=== PATIENT | female | born 2000 | race Two or more races ===

== ENCOUNTER 2021-11-22 15:10 | Emergency (ER) | payer MEDICAID, OTHER ==
[~2021-11-22] VITALS: Ht 167.6 cm; Wt 50.0 kg
[2021-11-22 17:03] VITALS: BP 126/90
[2021-11-22] MEDS ORDERED: IBUPROFEN 600 MG TAB PO ONE (18:00)
[2021-11-22] MEDS ORDERED: IBUP600T27 PO (18:07)
== END 2021-11-22 18:11 | disposition home or self-care (01) ==
LOC: ER 15:10
DX: S16.1XXA Strain of muscle, fascia and tendon at neck level, initial encounter (principal); Z91.010 Allergy to peanuts; V43.52XA Car driver injured in collision with other type car in traffic accident, initial encounter; Y93.89 Activity, other specified; Y92.410 Unspecified street and highway as the place of occurrence of the external cause; Y99.8 Other external cause status
CPT/HCPCS: 72040

== ENCOUNTER 2022-07-29 07:39 | Emergency (ER) | payer MEDICAID, OTHER ==
[~2022-07-29] VITALS: Ht 167.6 cm; Wt 54.2 kg
[~2022-07-29 07:39] MED LIST: IBUP-1454 PO
[2022-07-29 08:10] VITALS: BP 121/77
[2022-07-29] MEDS ORDERED: ACETAMINOPHEN 500 MG TAB PO ONE (08:30)
[2022-07-29] MEDS ORDERED: DEXT60TA4 PO (09:43)
[2022-07-29] MEDS ORDERED: AZIT-43 PO (09:43)
[2022-07-29] MEDS ORDERED: LORA-622 PO (09:43)
== END 2022-07-29 09:52 | disposition home or self-care (01) ==
LOC: ER 07:39
DX: J06.9 Acute upper respiratory infection, unspecified (principal); Z20.822 Contact with and (suspected) exposure to COVID-19; Z91.010 Allergy to peanuts
CPT/HCPCS: 36415; 71046; 87426; 87804

== ENCOUNTER 2024-01-18 08:22 | Emergency (ER) | payer MEDICAID ==
[~2024-01-18] VITALS: Ht 167.6 cm; Wt 63.1 kg
[~2024-01-18 08:22] MED LIST changes: +AZIT-43 PO; +DEXT60TA4 PO
[2024-01-18] MEDS ORDERED: HYDR25SU21 PR (09:33)
--- NOTE | 2024-01-18 09:35 | ED.PDOC ---
History of Present Illness HPI Comments 23 y/o M presents with c/o rectal bleeding and blood-streaked stools for 1 month. Patient endorses on having symptoms intermittently for the past month, with no some mild constipation, that he informs on laxative use to minimal relief. Patient states on having no Hx of hemorrhoids in the past and describes blood as bright red blood. Patient denies having any nausea, vomiting, abdominal pain, or other associated symptoms or modifiers at this time. Chief Complaint: Rectal Pain Time Seen by MD: 09:20 Primary Care Provider: UNKNOWN Reviewed Notes: Nurses Notes, Medications, Allergies Allergies: Uncoded Allergies: PEANUTS (Allergy, 05/16/13) Home Meds Active Scripts Hydrocortisone Acetate (Anusol-Hc) 25 Mg Sup, 1 SUPP RI BID, #14 SUPP Prov:BECKIE SINGH MD 01/18/24 Dextromethorphan-Guaifenesin (Mucinex Dm Maximum Streng) 1 Tab Tab, 1 TAB PO BID PRN for 5 Days, #10 TAB Prov:RAFA MOORE NP 07/29/22 Azithromycin (Azithromycin) 250 Mg Tab, 250 MG PO DAILY MDD 500 for 5 Days, #6 TAB 0 Refills 2 TABLETS ORALLY ON DAY ONE, THEN 1 TABLET ORALLY DAILY FOR 4 DAYS Prov:RAFA MOORE NP 07/29/22 Ibuprofen (Ibuprofen) 600 Mg Tab, 1 TAB PO TID, #30 TAB Prov:ISELA CORTEZ 11/22/21 Information Source: Patient Mode of Arrival: Ambulatory Severity: Moderate Timing: Hours Duration: Since onset Prehospital treatment: None Past Medical History PAST MEDICAL HISTORY: Seizures Family History Family History: No family hx of HTN, No family hx ofKidney oscar, No family hx of Liver oscar, No family hx of Lung oscar, No family hx of Stroke, Family hx of DM, Family hx of Cancer, Family hx of heart oscar Social History Smoker: Cigarettes Alcohol: Denies ETOH Use Drugs: Marijuana Lives In: Home Constitutional: denies: chills, diaphoresis, fatigue, fever, malaise, sweats, weakness, others EENTM: denies: blurred vision, double vision, ear bleeding, ear discharge, ear drainage, ear pain, ear ringing, eye pain, eye redness, hearing loss, mouth pain, mouth swelling, nasal discharge, nose bleeding, nose congestion, nose pain, photophobia, tearing, throat pain, throat swelling, voice changes, others Respiratory: denies: cough, hemoptysis, orthopnea, SOB at rest, shortness of breath, SOB with excertion, stridor, wheezing, others Cardiovascular: denies: chest pain, dizzy spells, diaphoresis, Dyspnea on exertion, edema, irregular heart beat, left arm pain, lightheadedness, palpitations, PND, syncope, others Gastrointestinal: reports: blood streaked bowels, rectal bleeding; denies: abdomen distended, abdominal pain, constipated, diarrhea, dysphagia, difficulty swallowing, hematemesis, melena, nausea, poor appetite, poor fluid intake, rectal pain, vomiting, others Genitourinary: denies: burning, dysuria, flank pain, frequency, hematuria, incontinence, penile discharge, penile sore, pain, testicle pain, testicle swelling, urgency, others Neurological: denies: dizziness, fainting, headache, left sided numbness, left sided weakness, numbness, paresthesia, pre-existing deficit, right sided numbness, right sided weakness, seizure, speech problems, tingling, tremors, weakness, others Musculoskeletal: denies: back pain, gout, joint pain, joint swelling, muscle pain, muscle stiffness, neck pain, others Integumetry: denies: bruises, change in color, change in hair/nails, dryness, laceration, lesions, lumps, rash, wounds, others Allergic/Immunocompromised: denies: Difficulty Healing, Frequent Infections, Hives, Itching, others Hematologic/Lymphatic: denies: anemia, blood clots, easy bleeding, easy bruising, swollen glands, others Endocrine: denies: excessive hunger, excessive sweating, excessive thirst, excessive urination, flushing, intolerance to cold, intolerance to heat, unexplained weight gain, unexplained weight loss, others Psychiatric: denies: anxiety, bipolar disorder, depression, hopeless, panic dis order, schizophrenia, sleepless, suicidal, others All Other Systems: Reviewed and Negative Physical Exam General Appearance: No Apparent Distress HEENT: Normal ENT Inspection, Pharynx Normal, TMs Normal Neck: Full Range of Motion, Non-Tender, Normal, Normal Inspection Respiratory: Chest Non-Tender, Lungs Clear, No Accessory Muscle Use, No Respiratory Distress, Normal Breath Sounds Cardiovascular: No Edema, No JVD, No Murmur, No Gallop, Normal Peripheral Pulses, Regular Rate/Rhythm Breast Exam: Deferred Gastrointestinal: No Organomegaly, Non Tender, No Pulsatile Mass, Normal Bowel Sounds, Soft Genitalia: Deferred Pelvic: Deferred Rectal: Heme positive stool, Hemorrhoids Extremities: No calf tenderness, Normal capillary refill, Normal inspection, Normal range of motion, Non-tender, No pedal edema Musculoskeletal : Apperance: Normal Neurologic: Alert, 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 Was a procedure done?: No Differential Dx Considerations may include: hemorrhoids, diverticulitis, GI hemorrhage, X-Ray, Labs, Meds, VS Vital Signs Date Time Temp Pulse Resp B/P (MAP) Pulse Ox O2 Delivery O2 Flow Rate FiO2 01/18/24 09:49 98.9 74 16 137/86 (103) 99 98.9 01/18/24 08:42 98.1 73 16 13/89 (64) 100 The patient was being started on Anusol The patient was diagnosis is internal hemorrhoids Images Reviewed?: Images reviewed and evaluated by me Time of 1ST Reevaluation: 09:50 Reevaluation 1ST: Unchanged Patient Education/Counseling: Diagnosis, Treatment, Prognosis, Need For Follow Up Family Education/Counseling: No Family Present Departure 1 Departure Time of Disposition: 09:38 Impression: Primary Impression: Internal hemorrhoids Disposition: 01 HOME / SELF CARE / HOMELESS Condition: Good e-Prescriptions Hydrocortisone Acetate (Anusol-Hc) 25 Mg Sup 1 SUPP RI BID, #14 SUPP Prov: BECKIE SINGH MD 01/18/24 Discharged With: Self Critical Care Note Critical Care Time?: No Stability Stability form required: No Heart Score Heart Score: Heart Score Response (Comments) Value History N/A 0 EKG N/A 0 Age N/A 0 Risk Factors N/A 0 Troponin N/A 0 Total 0 I personally scribed for BECKIE SINGH MD ([email or web address]) on 01/18/24 at 09:35. Electronically submitted by Hilario Brooke ([email or web address]). BECKIE SINGH MD Jan 18, 2024 09:35
[2024-01-18 09:49] VITALS: BP 137/86; PULSE 74; RESP 16; TEMP 98.9; O2SAT 99
== END 2024-01-18 09:57 | disposition home or self-care (01) ==
LOC: ER 08:22
DX: K62.5 Hemorrhage of anus and rectum (principal); K64.8 Other hemorrhoids; F17.210 Nicotine dependence, cigarettes, uncomplicated; F12.10 Cannabis abuse, uncomplicated; Z79.1 Long term (current) use of non-steroidal anti-inflammatories (NSAID)